=== PATIENT | male | born 1975 | race Two or more races ===

== ENCOUNTER 2017-02-18 22:51 | Emergency (ER) | payer MEDICAID, OTHER ==
[~2017-02-18] VITALS: Ht 188 cm; Wt 113.6 kg
[~2017-02-18 22:51] MED LIST: ARIP5TAB4 PO; DIVA500T4 PO; HALO5TAB PO; HYDR25CA PO; LORA2TAB96 PO; LORA2VIA27 IM; RISP0.5T74 PO
[2017-02-19] MEDS ORDERED: ibuprofen tablet 400 MG TABLET PO ONE (01:15)
[2017-02-19 01:30] VITALS: BP 128/78
== END 2017-02-19 01:32 | disposition home or self-care (01) ==
LOC: ER 22:52
DX: M79.671 Pain in right foot (principal); M79.672 Pain in left foot; Z88.1 Allergy status to other antibiotic agents; Z88.8 Allergy status to other drugs, medicaments and biological substances; Z79.899 Other long term (current) drug therapy; W22.8XXA Striking against or struck by other objects, initial encounter; Y93.01 Activity, walking, marching and hiking; Y92.89 Other specified places as the place of occurrence of the external cause; Y99.9 Unspecified external cause status
CPT/HCPCS: 99282

== ENCOUNTER 2017-02-21 18:05 | Emergency (ER) | payer MEDICAID ==
[~2017-02-21] VITALS: Ht 188 cm; Wt 86.0 kg
[2017-02-21 20:42] VITALS: BP 130/87
== END 2017-02-21 20:46 | disposition home or self-care (01) ==
LOC: ER 18:07
DX: T69.022A Immersion foot, left foot, initial encounter (principal); T69.021A Immersion foot, right foot, initial encounter; F17.200 Nicotine dependence, unspecified, uncomplicated; Z59.0 Homelessness; Z88.2 Allergy status to sulfonamides; Z88.8 Allergy status to other drugs, medicaments and biological substances
CPT/HCPCS: 99281

== ENCOUNTER 2017-02-23 12:04 | Emergency (ER) | payer MEDICAID ==
[~2017-02-23] VITALS: Ht 188 cm; Wt 91.0 kg
[2017-02-23 12:50] VITALS: BP 126/85
[2017-02-28] MEDS ORDERED: IBUP-1984 PO (14:22)
== END 2017-02-23 12:51 | disposition home or self-care (01) ==
LOC: ER 12:05
DX: M54.5 Low back pain (principal); M79.671 Pain in right foot; M79.672 Pain in left foot; R20.2 Paresthesia of skin; Z59.0 Homelessness; Z88.2 Allergy status to sulfonamides; Z88.8 Allergy status to other drugs, medicaments and biological substances
CPT/HCPCS: 99281

== ENCOUNTER 2017-02-23 23:35 | Emergency (ER) | payer MEDICAID, OTHER ==
[~2017-02-23] VITALS: Ht 188 cm; Wt 90.9 kg
[2017-02-24 01:12] VITALS: BP 140/108
[2017-02-28] MEDS ORDERED: IBUP-1984 PO (14:22)
== END 2017-02-24 01:15 | disposition home or self-care (01) ==
LOC: ER 23:36
DX: T69.022A Immersion foot, left foot, initial encounter (principal); T69.021A Immersion foot, right foot, initial encounter; M79.671 Pain in right foot; R46.0 Very low level of personal hygiene; M79.672 Pain in left foot; Z59.0 Homelessness; Z91.041 Radiographic dye allergy status; Z88.1 Allergy status to other antibiotic agents; Z88.8 Allergy status to other drugs, medicaments and biological substances; Z79.899 Other long term (current) drug therapy; Y92.9 Unspecified place or not applicable
CPT/HCPCS: 99281

== ENCOUNTER 2017-02-26 07:59 | Emergency (ER) | payer MEDICAID, OTHER ==
[~2017-02-26] VITALS: Ht 188 cm; Wt 91.0 kg
[2017-02-26 08:02] VITALS: BP 155/118
[2017-02-26] MEDS ORDERED: CEPH500C5 PO (08:26)
[2017-02-26] MEDS ORDERED: MICO45PO TOP (18:29)
[2017-02-27] MEDS ORDERED: IBUP-1984 PO (21:31)
[2017-02-28] MEDS ORDERED: IBUP-1984 PO (14:22)
== END 2017-02-26 09:17 | disposition home or self-care (01) ==
LOC: ER 07:59
DX: K13.0 Diseases of lips (principal); Z59.0 Homelessness; Z79.899 Other long term (current) drug therapy; Z88.2 Allergy status to sulfonamides; Z88.8 Allergy status to other drugs, medicaments and biological substances
CPT/HCPCS: 99283

== ENCOUNTER 2017-02-26 17:36 | Emergency (ER) | payer MEDICAID, OTHER ==
[~2017-02-26] VITALS: Ht 188 cm; Wt 94.0 kg
[~2017-02-26 17:36] MED LIST changes: +CEPH500C5 PO
[2017-02-26] MEDS ORDERED: MICO45PO TOP (18:29)
[2017-02-26 18:42] VITALS: BP 129/84
[2017-02-27] MEDS ORDERED: IBUP-1984 PO (21:31)
[2017-02-28] MEDS ORDERED: IBUP-1984 PO (14:22)
== END 2017-02-26 19:03 | disposition home or self-care (01) ==
LOC: ER 17:37
DX: S90.822A Blister (nonthermal), left foot, initial encounter (principal); S90.821A Blister (nonthermal), right foot, initial encounter; B35.3 Tinea pedis; Z59.0 Homelessness; Z88.2 Allergy status to sulfonamides; Z88.8 Allergy status to other drugs, medicaments and biological substances; X58.XXXA Exposure to other specified factors, initial encounter; Y93.89 Activity, other specified; Y92.89 Other specified places as the place of occurrence of the external cause; Y99.8 Other external cause status
CPT/HCPCS: 99281; 99284

== ENCOUNTER 2017-02-27 21:03 | Emergency (ER) | payer MEDICAID ==
[~2017-02-27] VITALS: Ht 188 cm; Wt 95.5 kg
[~2017-02-27 21:03] MED LIST changes: +MICO45PO TOP
[2017-02-27] MEDS ORDERED: IBUP-1984 PO (21:31)
[2017-02-27 21:44] VITALS: BP 120/80
[2017-02-28] MEDS ORDERED: IBUP-1984 PO (14:22)
== END 2017-02-27 21:46 | disposition home or self-care (01) ==
LOC: ER 21:04
DX: L75.0 Bromhidrosis (principal); M54.2 Cervicalgia; Z59.0 Homelessness; Z88.2 Allergy status to sulfonamides; Z88.8 Allergy status to other drugs, medicaments and biological substances; Z79.899 Other long term (current) drug therapy
CPT/HCPCS: 99282

== ENCOUNTER 2018-03-31 14:06 | Emergency (ER) | payer MEDICAID ==
[~2018-03-31] VITALS: Ht 188 cm; Wt 104.5 kg
[~2018-03-31 14:06] MED LIST changes: -CEPH500C5 PO; -LORA2VIA27 IM; +LORA2VIA30 IM
[2018-03-31 14:22] VITALS: BP 162/88
[2018-03-31] MEDS ORDERED: proCHLORperazine 10mg tablet PO ONE (14:55)
[2018-03-31] MEDS ORDERED: naproxen 500mg tablet PO ONE (14:55)
[2018-03-31] MEDS ORDERED: HYDROcodone/acetaminophen 5mg/325mg tablet PO ONE (14:55)
[2018-03-31] MEDS ORDERED: SUMAtriptan succ. 6 MG/0.5ml vial SQ ONE (14:55)
== END 2018-03-31 15:11 | disposition home or self-care (01) ==
LOC: ER 14:07
DX: E86.0 Dehydration (principal); I10 Essential (primary) hypertension; Z59.0 Homelessness; Z56.0 Unemployment, unspecified; Z88.1 Allergy status to other antibiotic agents; Z91.041 Radiographic dye allergy status; Z79.899 Other long term (current) drug therapy
CPT/HCPCS: 96372; 99284; J3030; Q0164

== ENCOUNTER 2018-04-02 04:24 | Emergency (ER) | payer MEDICAID ==
[~2018-04-02] VITALS: Ht 188 cm; Wt 85.0 kg
[2018-04-02 06:02] VITALS: BP 122/79
[2018-04-02] MEDS ORDERED: acetaminophen 325mg tablet PO ONE (06:15)
== END 2018-04-02 06:59 | disposition home or self-care (01) ==
LOC: ER 04:25
DX: H92.02 Otalgia, left ear (principal); Z59.0 Homelessness; Z56.0 Unemployment, unspecified; Z88.2 Allergy status to sulfonamides; Z91.041 Radiographic dye allergy status
CPT/HCPCS: 99282

== ENCOUNTER 2018-04-02 13:13 | Emergency (ER) | payer MEDICAID ==
[~2018-04-02] VITALS: Ht 188 cm; Wt 96.8 kg
[2018-04-02 13:44] LABS: BASOPHILS % (AUTO) 0.6 % (0-1); EOSINOPHILS # (AUTO) 0.1 X10'3 (0-0.9); EOSINOPHILS % (AUTO) 1.5 % (0-6); HEMATOCRIT 39.6 % (42.0-52.0); HEMOGLOBIN 13.6 g/dl (14.0-17.9); LYMPHOCYTES # (AUTO) 1.5 X10'3 (1.1-4.8); MEAN CORPUSCULAR HEMOGLOBIN 31.8 PG (27.0-31.0); MEAN CORPUSCULAR HGB CONC 34.3 g/dL (33.0-36.5); MEAN CORPUSCULAR VOLUME 92.7 FL (78-98); MEAN PLATELET VOLUME 7.9 FL (7.4-10.4); MONOCYTES # (AUTO) 0.7 X10'3 (0-0.9); MONOCYTES % (AUTO) 9.6 % (2-12); NEUTROPHILS # (AUTO) 5.3 X10'3 (1.8-7.7); NEUTROPHILS % (AUTO) 68.3 % (42-75); PLATELET COUNT 290 X10'3 (140-440); RED BLOOD COUNT 4.27 X10'6 (4.70-6.10); RED CELL DISTRIBUTION WIDTH 14.2 % (11.5-14.5); WHITE BLOOD COUNT 7.7 X10'3 (4.5-11.0)
[2018-04-02 14:00] LABS: ALANINE AMINOTRANSFERASE 26 U/L (12-78); ALBUMIN 3.7 G/DL (3.4-5.0); ALBUMIN/GLOBULIN RATIO 0.9 (1.1-1.5); ALKALINE PHOSPHATASE 120 IU/L (46-116); ANION GAP 14 (8-16); ASPARTATE AMINO TRANSFERASE 31 U/L (10-37); BILIRUBIN,TOTAL 0.6 MG/DL (0.1-1.0); BLOOD UREA NITROGEN 12 MG/DL (7-18); BUN/CREATININE RATIO 13.2 (5.4-32.0); CHLORIDE 98 MMOL/L (99-107); CREATININE 0.91 MG/DL (0.60-1.10); GLUCOSE 76 MG/DL (70-104); PARTIAL THROMBOPLASTIN TIME 28 SECONDS (22-32); POTASSIUM 3.3 MMOL/L (3.5-5.1); PROTHROMBIN TIME 10.2 SECONDS (9.0-12.0); SODIUM 137 MMOL/L (135-145); TOTAL CARBON DIOXIDE 24.9 MMOL/L (24-32); TOTAL PROTEIN 7.8 G/DL (6.4-8.2); eGFR > 90 ML/MIN
[2018-04-02] MEDS ORDERED: LORazepam 1 MG tablet PO ONE (14:10)
[2018-04-02 14:19] VITALS: BP 145/94
== END 2018-04-02 14:21 | disposition home or self-care (01) ==
LOC: ER 13:14
DX: R07.9 Chest pain, unspecified (principal); Z88.2 Allergy status to sulfonamides; Z88.8 Allergy status to other drugs, medicaments and biological substances; Z79.899 Other long term (current) drug therapy; Z56.0 Unemployment, unspecified; Z59.0 Homelessness
CPT/HCPCS: 36415; 71045; 80053; 84484; 85025; 85610; 85730; 93005; 99284

== ENCOUNTER 2018-04-06 10:22 | Emergency (ER) | payer MEDICAID ==
[~2018-04-06] VITALS: Ht 188 cm; Wt 100.0 kg
[2018-04-06 11:09] VITALS: BP 160/82
== END 2018-04-06 15:37 | disposition left against medical advice (07) ==
LOC: ER 10:23
DX: M25.529 Pain in unspecified elbow (principal); Z53.21 Procedure and treatment not carried out due to patient leaving prior to being seen by health care provider

== ENCOUNTER 2018-04-08 15:06 | Emergency (ER) | payer MEDICAID ==
[~2018-04-08] VITALS: Ht 188 cm; Wt 102.3 kg
[2018-04-08] MEDS ORDERED: mupirocin 2% ointment 22GM TP STA (15:43)
[2018-04-08 15:48] VITALS: BP 147/79
--- NOTE | 2018-04-08 15:54 | NUR ---
pt has blood pressure cuffs in his left back pocket from all his visits. He says they are part of him. he asked to keep his cuffs.
== END 2018-04-08 16:04 | disposition home or self-care (01) ==
LOC: ER 15:07
DX: S80.211A Abrasion, right knee, initial encounter (principal); R21 Rash and other nonspecific skin eruption; M79.604 Pain in right leg; F20.9 Schizophrenia, unspecified; F31.9 Bipolar disorder, unspecified; Z59.0 Homelessness; Z56.0 Unemployment, unspecified; Z91.041 Radiographic dye allergy status; Z88.1 Allergy status to other antibiotic agents; Z88.8 Allergy status to other drugs, medicaments and biological substances; X58.XXXA Exposure to other specified factors, initial encounter; Y93.89 Activity, other specified; Y92.89 Other specified places as the place of occurrence of the external cause; Y99.9 Unspecified external cause status
CPT/HCPCS: 99282; 99284

== ENCOUNTER 2018-04-10 19:23 | Emergency (ER) | payer MEDICAID ==
[~2018-04-10] VITALS: Ht 188 cm; Wt 102.2 kg
[2018-04-10 19:38] VITALS: BP 117/62
[2018-04-10] MEDS ORDERED: CYCL-1 PO (21:54)
[2018-04-10] MEDS ORDERED: IBUP-1984 PO (21:54)
[2018-04-10] MEDS ORDERED: ibuprofen tablet 400 MG TABLET PO ONE (21:55)
== END 2018-04-10 22:11 | disposition home or self-care (01) ==
LOC: ER 19:23
DX: M54.5 Low back pain (principal); Z88.2 Allergy status to sulfonamides; Z88.8 Allergy status to other drugs, medicaments and biological substances; Z79.899 Other long term (current) drug therapy; Z59.0 Homelessness; Z56.0 Unemployment, unspecified
CPT/HCPCS: 99283

== ENCOUNTER 2018-04-12 14:51 | Emergency (ER) | payer MEDICAID ==
[~2018-04-12] VITALS: Ht 182.9 cm; Wt 104.5 kg
[~2018-04-12 14:51] MED LIST changes: +CYCL-1 PO; +IBUP-1984 PO
[2018-04-12 15:04] VITALS: BP 157/96
== END 2018-04-12 15:57 | disposition home or self-care (01) ==
LOC: ER 14:51
DX: S46.911A Strain of unspecified muscle, fascia and tendon at shoulder and upper arm level, right arm, initial encounter (principal); F15.90 Other stimulant use, unspecified, uncomplicated; Z88.2 Allergy status to sulfonamides; Z88.8 Allergy status to other drugs, medicaments and biological substances; Z79.899 Other long term (current) drug therapy; Z59.0 Homelessness; Z56.0 Unemployment, unspecified; X58.XXXA Exposure to other specified factors, initial encounter; Y93.71 Activity, boxing; Y92.89 Other specified places as the place of occurrence of the external cause; Y99.8 Other external cause status
CPT/HCPCS: 99284

== ENCOUNTER 2018-04-14 01:33 | Emergency (ER) | payer MEDICAID ==
[~2018-04-14] VITALS: Ht 188 cm; Wt 84.5 kg
[2018-04-14 01:44] VITALS: BP 136/82
== END 2018-04-14 02:19 | disposition left against medical advice (07) ==
LOC: ER 01:34
DX: M54.2 Cervicalgia (principal); Z53.21 Procedure and treatment not carried out due to patient leaving prior to being seen by health care provider

== ENCOUNTER 2018-04-18 08:21 | Emergency (ER) | payer MEDICAID ==
[~2018-04-18] VITALS: Ht 188 cm; Wt 97.7 kg
[~2018-04-18 08:21] MED LIST changes: -IBUP-1984 PO
[2018-04-18 08:30] VITALS: BP 135/90
[2018-04-18] MEDS ORDERED: IBUP-1984 PO (08:43)
--- NOTE | 2018-04-18 09:35 | NUR ---
LEFT WRIST SPLINT APPLIED. DC INSTRUCTIONS GIVEN WITH PRESCRIPTION AND VERBALIZED UNDERSTANDING. DEPARTED AMB IN GOOD CONDITION.
== END 2018-04-18 09:38 | disposition home or self-care (01) ==
LOC: ER 08:22
DX: G89.29 Other chronic pain (principal); M25.562 Pain in left knee; G56.32 Lesion of radial nerve, left upper limb; M21.332 Wrist drop, left wrist; F17.210 Nicotine dependence, cigarettes, uncomplicated; Z56.0 Unemployment, unspecified; Z59.0 Homelessness; Z91.041 Radiographic dye allergy status; Z88.2 Allergy status to sulfonamides
CPT/HCPCS: 29125; 99283

== ENCOUNTER 2018-04-22 19:40 | Emergency (ER) | payer MEDICAID ==
[~2018-04-22] VITALS: Ht 188 cm; Wt 100.0 kg
[~2018-04-22 19:40] MED LIST changes: +IBUP-1984 PO
[2018-04-22 19:47] VITALS: BP 145/84
== END 2018-04-22 21:12 | disposition home or self-care (01) ==
LOC: ER 19:41
DX: M79.641 Pain in right hand (principal); M79.642 Pain in left hand; Z88.2 Allergy status to sulfonamides; Z88.8 Allergy status to other drugs, medicaments and biological substances; Z79.899 Other long term (current) drug therapy; Z59.0 Homelessness; Z56.0 Unemployment, unspecified
CPT/HCPCS: 99281

== ENCOUNTER 2018-05-03 08:05 | Emergency (ER) | payer MEDICAID ==
[~2018-05-03] VITALS: Ht 182.9 cm; Wt 91.1 kg
[2018-05-03 08:08] VITALS: BP 149/90
[2018-05-03] MEDS ORDERED: ACET-2119 PO (08:34)
== END 2018-05-03 08:52 | disposition home or self-care (01) ==
LOC: ER 08:05
DX: M25.562 Pain in left knee (principal); M54.9 Dorsalgia, unspecified; M79.645 Pain in left finger(s); M79.644 Pain in right finger(s); Z88.2 Allergy status to sulfonamides; Z88.8 Allergy status to other drugs, medicaments and biological substances; Z79.899 Other long term (current) drug therapy; Z59.0 Homelessness; Z56.0 Unemployment, unspecified; X50.9XXA Other and unspecified overexertion or strenuous movements or postures, initial encounter; Y93.89 Activity, other specified; Y92.89 Other specified places as the place of occurrence of the external cause; Y99.8 Other external cause status
CPT/HCPCS: 99282

== ENCOUNTER 2018-05-04 23:02 | Emergency (ER) | payer MEDICAID ==
[~2018-05-04] VITALS: Ht 188 cm; Wt 90.0 kg
[~2018-05-04 23:02] MED LIST changes: +ACET-2119 PO
[2018-05-04 23:08] VITALS: BP 143/83
--- NOTE | 2018-05-04 23:58 | NUR ---
Here for a physical from . He currently had no c/o anything.
== END 2018-05-04 23:59 | disposition home or self-care (01) ==
LOC: ER 23:03
DX: Z00.00 Encounter for general adult medical examination without abnormal findings (principal); F20.9 Schizophrenia, unspecified; Z56.0 Unemployment, unspecified; Z59.0 Homelessness; Z88.2 Allergy status to sulfonamides; Z91.041 Radiographic dye allergy status; Z79.899 Other long term (current) drug therapy
CPT/HCPCS: 99281

== ENCOUNTER 2018-05-10 09:52 | Emergency (ER) | payer MEDICAID ==
[~2018-05-10] VITALS: Ht 188 cm; Wt 90.0 kg
[2018-05-10] MEDS ORDERED: LORazepam 2 mg/ml vial IM ONE ×2 (10:15→20:00)
[2018-05-10] MEDS ORDERED: diphenhydrAMINE 50 mg/ml inj IM ONE ×2 (10:15→20:00)
[2018-05-10] MEDS ORDERED: haloperidol lactate 5mg/ml inj IM ONE ×3 (10:15→20:00)
--- NOTE | 2018-05-10 10:31 | NUR ---
PT MOVED FROM SLAUGHTER 16 TO BED 9. MARJORIE GARIBAY TO INTAKE AND MEDICATE
[2018-05-10 11:12] LABS: BASOPHILS # (AUTO) 0.1 X10'3 (0-0.2); BASOPHILS % (AUTO) 1.3 % (0-1); EOSINOPHILS # (AUTO) 0.1 X10'3 (0-0.9); EOSINOPHILS % (AUTO) 1.6 % (0-6); HEMATOCRIT 39.6 % (42.0-52.0); HEMOGLOBIN 13.3 g/dl (14.0-17.9); MEAN CORPUSCULAR HEMOGLOBIN 31.4 PG (27.0-31.0); MEAN CORPUSCULAR HGB CONC 33.6 g/dL (33.0-36.5); MEAN CORPUSCULAR VOLUME 93.6 FL (78-98); MEAN PLATELET VOLUME 8.1 FL (7.4-10.4); MONOCYTES # (AUTO) 0.5 X10'3 (0-0.9); MONOCYTES % (AUTO) 8.3 % (2-12); NEUTROPHILS # (AUTO) 3.5 X10'3 (1.8-7.7); NEUTROPHILS % (AUTO) 56.8 % (42-75); PLATELET COUNT 303 X10'3 (140-440); RED BLOOD COUNT 4.23 X10'6 (4.70-6.10); RED CELL DISTRIBUTION WIDTH 14.7 % (11.5-14.5); WHITE BLOOD COUNT 6.2 X10'3 (4.5-11.0)
[2018-05-10 11:21] LABS: ALANINE AMINOTRANSFERASE 29 U/L (12-78); ALBUMIN 3.5 G/DL (3.4-5.0); ALBUMIN/GLOBULIN RATIO 1.1 (1.1-1.5); ALKALINE PHOSPHATASE 99 IU/L (46-116); ANION GAP 10 (8-16); ASPARTATE AMINO TRANSFERASE 27 U/L (10-37); BILIRUBIN,TOTAL 0.4 MG/DL (0.1-1.0); BLOOD UREA NITROGEN 11 MG/DL (7-18); BUN/CREATININE RATIO 13.6 (5.4-32.0); CHLORIDE 105 MMOL/L (99-107); CREATININE 0.81 MG/DL (0.60-1.10); ETHANOL < 0.010 GM/DL (0.0-0.010); GLUCOSE 86 MG/DL (70-104); POTASSIUM 3.5 MMOL/L (3.5-5.1); SODIUM 140 MMOL/L (135-145); TOTAL CARBON DIOXIDE 24.9 MMOL/L (24-32); TOTAL PROTEIN 6.8 G/DL (6.4-8.2); eGFR > 90 ML/MIN
--- NOTE | 2018-05-10 11:26 | NUR ---
SAT PT UP TO SIDE OF BED WITH LEGS HANGING OVER SIDE OF GURNEY, 3 SECURITY AT BEDSIDE, CA PA TO BEDSIDE TO EVALUATE PT LEFT KNEE PAIN AND SWELLING, PT OFFERED IBUPROFEN TID WITH MEALS AND MUMBLED SOME KIND OF NONSENSE REFUSAL OF IBUPROFEN, PT ASKED TO PROVIDE URINE SAMPLE 3 TIMES SINCE ARRIVAL PT LAST RESPONSE WAS THAT HE KNOW WHEN HE HAS TO GO AND HE DOES NOT AT THIS TIME, PT WAS GIVEN LARGE GLASS OF ICEWATER AND DRANK SOME, PT IS NOW BECOMING SLEEPY CLOSING EYE WHIL SITTING UP, PT LAY BACK DOWN AFTER ASSESSMENT AND QUICKLY BACK TO SLEEP, RESPIRATIONS SPONTANEOUS, EVEN AND UNLABORED, NO S/S OF DISTRESS, DISCOMFORT OR AGITATION AFTER BEING MEDICATED PER ORDERS. CA INFORMED THAT UNABLE TO OBTAIN URINE AT THIS TIME, PROVIDER IS FINE WITH NOT GETTING NOW AND RN WILL ATTEMPT TO OBTAIN URINE AGAIN IN AN HOUR.
--- NOTE | 2018-05-10 12:24 | NUR ---
PT STOOD UP IN ROOM SPILLED HIS CUP OF WATER, URINATED ON GREEN PANTS SCRUBS AND FLOOR, SECURITY CALLED TO BEDSIDE AND EVS CLEANED UP SPILL ON FLOOR, SECURITY STANDING BY PT STOOD TO URINATE IN URINAL, SENT URINE DOWN TO LAB PER ORDERS, PT CHANGED INTO NEW GREEN SCRUB BOTTOM, GIVEN JELLO AND YOGURT, INFORMED LUNCH TRAY SHOULD BE HERE SHORTLY.
[2018-05-10 12:33] LABS: CLARITY,URINE CLEAR (Clear); COLOR,URINE YELLOW (Yellow); GLUCOSE, URINE NEGATIVE (Neg); KETONES,URINE 15 mg/dl (Neg); LEUKOCYTE ESTERASE ,URINE NEGATIVE (Neg); NITRITES, URINE NEGATIVE (Neg); OCCULT BLOOD,URINE NEGATIVE (Neg); PROTEIN,URINE NEGATIVE (Neg); UROBILINOGEN,URINE 0.2 E.U/dL (0.2-1.0)
[2018-05-10 12:35] LABS: UA COLLECTION TYPE VOIDED
[2018-05-10 12:43] LABS: URINE AMPHETAMINE SCREEN NEGATIVE (Neg); URINE BARBITUATE SCREEN NEGATIVE (Neg); URINE BENZODIAZEPINES SCREEN NEGATIVE (Neg); URINE CANNABINOID SCREEN NEGATIVE (Neg); URINE COCAINE SCREEN NEGATIVE (Neg); URINE METHADONE SCREEN NEGATIVE (Neg); URINE OPIATE SCREEN NEGATIVE (Neg); URINE PHENCYCLIDINE SCREEN NEGATIVE (Neg)
--- NOTE | 2018-05-10 13:25 | NUR ---
PT SLEEPING, RESPIRATIONS SPONTENOUS, EVEN AND UNLABORED, NO S/S OF DISTRESS, DISCOMFORT OR AGITATION AT THIS TIME.
--- NOTE | 2018-05-10 14:32 | NUR ---
PT IS SLEEPING ON LEFT SIDE, RESPIRATIONS SPONTANEOUS, EVEN AND UNLABORED, NO S/S OF DISTRESS DISCOMFORT OR AGITATION.
--- NOTE | 2018-05-10 17:29 | NUR ---
relieving RN for break, report to Priya GARIBAY,
--- NOTE | 2018-05-10 18:07 | NUR ---
Patient ambulatory, steady gait to room 27.
--- NOTE | 2018-05-10 19:58 | NUR ---
PT IS AWAKE AND UP ON HIS OWN TO THE BATHROOM. PT WAS MOVED TO BED 21, DEMANDING TO HAVE A TRAY FOR DINNER, DEMANDING TO HAVE HIS FFET CLEANED. PT IS BEING LOUD AND VERBAL ABUSIVE TO STAFF, JANNA RANDOLPH NOTIFED. SECURITY IS ON STANDBY.
--- NOTE | 2018-05-10 20:15 | NUR ---
Patient continues to be verbally aggressive towards staff and security. Threatening physical violence and nonsensical confabulations. Making statements as to "I'll have you arrested, I have diplomatic immunity, I'm not even from your planet". Delusions of grandeur, believing he owns the hospital and that staff has no right to be there, that he will "arrest you myself if you touch me again in my hospital". Abrassive and verbally agressive towards security, attempting to belittle them, calling them "just a fat mother fucker that don't know how to exercise...you fucking almost obese, you fat mother-fucker, try to touch me, I'll knock you through that fucking wall".
--- NOTE | 2018-05-10 21:14 | NUR ---
PT IS LAYING ON HIS RIGHT SIDE, RESPIRATIONS EVEN AND UNLABORED. NO DISTRESS NOTED AT THIS TIME.
--- NOTE | 2018-05-10 23:03 | NUR ---
PT IS SLEEPING LAYING SUPINE, RESPIRATIONS EVEN AND UNLABORED, NO SISTRESSS NOTED AT THIS TIME.
--- NOTE | 2018-05-11 00:12 | NUR ---
Report rec'd, care assumed, assessments reviewed and agreed with. Patient is currently resting in bed with eyes closed, appearing to sleep. Will continue to monitor.
--- NOTE | 2018-05-11 01:24 | NUR ---
In bed, appearing to sleep. Restless at times, but back to sleep without issues or concerns noted atthis time. Will monitor.
--- NOTE | 2018-05-11 02:57 | NUR ---
Appearing to sleep, no new concerns or issues noted. Will continue to monitor.
--- NOTE | 2018-05-11 03:52 | NUR ---
Resting in bed, appearing to sleep, though restless at times. No new concerns or persisting behavorial issues noted at this time. Will continue to monitor.
--- NOTE | 2018-05-11 05:02 | NUR ---
Awake, up to BRP, appearing far more calm at this time. Will continue to monitor.
--- NOTE | 2018-05-11 05:07 | NUR ---
Requesting breakfast, stating "I missed dinner, slept right through it", sandwich given to patient.
--- NOTE | 2018-05-11 05:45 | NUR ---
Vital signs taken by Tech. Cooperative with cares this morning, will monitor.
--- NOTE | 2018-05-11 06:30 | NUR ---
Pt report recieved and assumed care of pt. Pt up and walking around bed randomly talking and rapping. Asked pt to lower his voice several times, will be compliant for a minute then talks loudly again.
--- NOTE | 2018-05-11 07:44 | NUR ---
pt awake and up and down from bed to bathroom and occationally sits on the floor. Pt washed himself in the bathroom. Came back to bed and soaked feet in a basin by his bed and continued self-care. Pt up and walking around his bed and appears to be restless. Pt rapping and singing, asked to keep noise level down. Can easily be redirected when asked to stay by his bed. occationally becomes angry when redirected to his bed. Keeps asking for breakfast. Talks about random things and not making sense.
[2018-05-11] MEDS ORDERED: diphenhydrAMINE 50 mg/ml inj IM ONE (08:05)
[2018-05-11] MEDS ORDERED: LORazepam 2 mg/ml vial IM ONE (08:05)
[2018-05-11] MEDS ORDERED: haloperidol lactate 5mg/ml inj IM ONE (08:05)
--- NOTE | 2018-05-11 08:51 | NUR ---
Pt given Ativan, Haldol, and Benadryl IM at 0830 with extra nursing personnel and security at bedside. Pt was compliant and took medication well. Pt remains to stand up and walk around bed talking loudly. Pt asked to stay in bed and lower voice multiple times, security remaining at bedside.
--- NOTE | 2018-05-11 09:00 | NUR ---
pt asleep in bed s/p Ativan, Haldol, Benadryl administration.
--- NOTE | 2018-05-11 11:12 | NUR ---
pt woke up from sleeping and walking to the bathroom, groggy. Cussing at staff, getting verbally hostile. Security at bedside. walking around bed straightening bed sheets.
[2018-05-11] MEDS ORDERED: LORazepam 1 MG tablet PO ONE (11:25)
--- NOTE | 2018-05-11 11:33 | NUR ---
Dr. Ford aware, pt up and walking around and being verbally abusive and agitated s/p Ativan, Haldol, and Benadryl administration less than 3 hours ago. Ativan 2mg PO ordered and given per Dr. Ford. Dr. Anthony with Psych to see pt for eval. Pt has now returned to bed. Security at bedside.
--- NOTE | 2018-05-11 13:12 | NUR ---
Pt has been evaluated by Dr. Lizama. Pt will occationally get up to use the restroom. It currently asleep.
--- NOTE | 2018-05-11 14:00 | NUR ---
pt up to bathroom. in no distress. was sleeping well.
--- NOTE | 2018-05-11 14:12 | NUR ---
eating lunch now.
--- NOTE | 2018-05-11 15:53 | NUR ---
resting comfortably in bed, calm. occationally gets up to use restroom and then goes back to bed.
--- NOTE | 2018-05-11 18:15 | NUR ---
pt ambulating around the unit, calm and cooperative.
--- NOTE | 2018-05-11 18:52 | NUR ---
pt sitting up eating dinner in between coming to nurses station requesting various items, dancing in the hallways, and cleaning various surfaces.
[2018-05-11] MEDS ORDERED: HYDR-3717 PO (19:15)
[2018-05-11] MEDS ORDERED: DIVA-76 PO (19:15)
[2018-05-11] MEDS ORDERED: HYDR-3686 PO (19:15)
--- NOTE | 2018-05-11 19:36 | NUR ---
SOC called to initiate telepsych consult
[2018-05-11] MEDS: LORazepam 1 MG tablet PO PRN (20:00)
--- NOTE | 2018-05-11 20:05 | NUR ---
waiting for completion of telepsych before giving night meds.
[2018-05-11] MEDS ORDERED: haloperidol 5mg tablet PO ONE (20:25)
[2018-05-11] MEDS ORDERED: diphenhydrAMINE 25mg capsule PO ONE (20:25)
[2018-05-11] MEDS: risperiDONE 2mg tablet PO SCH (20:33)
[2018-05-11] MEDS: divalproex sodium 250mg tablet PO SCH (20:33)
--- NOTE | 2018-05-11 20:37 | NUR ---
pt had become agitated and aggressive and would not stay near his room or reason with staff. he became defiant and more agitated when limits were set. security was called and he still would not cooperate. Dr Lopez notified and he ordered medications for agitation. pt cooperated with taking PO meds
--- NOTE | 2018-05-11 21:07 | NUR ---
pt is currently resting calmly in bed on left side, respirations WNL
--- NOTE | 2018-05-11 21:13 | NUR ---
spoke with SOC MD who called to get a report. Will attempt telepsych consult tomorrow, pt is now sleeping and calm after rec/ meds
--- NOTE | 2018-05-11 22:25 | NUR ---
pt up to void, then returned to bed and fell back asleep.
[2018-05-11] MEDS: hydrOXYzine 25 MG tablet PO PRN (23:46)
[2018-05-11] MEDS: hydrOXYzine 10 MG tablet PO PRN (23:52)
[2018-05-11] MEDS ORDERED: OLANZapine **IM** 10 mg inj. IM ONE (23:55)
--- NOTE | 2018-05-12 00:18 | NUR ---
PT'S BEHAVIOR ESCALATING, MEDICATED AGAIN FOR AGGITATION WITH ZYPREXA. ESCORTED BACK TO BED AND TOLD TO LIE DOWN AND KEEP QUIET HE IS DISRUPTING ENTIRE UNIT. SECURITY AT BEDSIDE. PT PULLING LINEN OFF BED AND CURSING.
[2018-05-12] MEDS ORDERED: LORazepam 2 mg/ml vial IM ONE ×3 (00:35→16:25)
--- NOTE | 2018-05-12 00:55 | NUR ---
PT CONTINUES TO BE RESTLESS, AND VERBALLY ABUSIVE TO STAFF. SECURITY CALLED 3 TIMES IN LAST HOUR TO ENCOURAGE PATIENT TO RETURN TO BED. ORDER FOR RESTRAINTS OBTAINED FROM ER PHYSICIAN IF NEEDED. ER PHYSICIAN OBSERVED PT AND ORDERED AND ADDITIONAL 4 MG ATIVAN, IM. PT OUT OF BED TO USE THE RESTROOM, THEN RETURNED TO BED WITH ECOURAGEMENT OF SECURITY.
--- NOTE | 2018-05-12 01:46 | NUR ---
Pt incontient of urine. Fresh gown placed on pt. Dry flows placed on beds. Pt placed in a brief.
--- NOTE | 2018-05-12 02:25 | NUR ---
PT SAT ON SIDE OF BED AND URINATED ON FLOOR. PT SLEEPY AND SLURRING HIS WORDS. PT AND FLOOR CLEANED, PATIENT AND FLOOR WAS CLEANED. PT RETURNED TO BED AND FELL ASLEEP. RESPIRATIONS EVEN AND UNLABORED.
--- NOTE | 2018-05-12 03:15 | NUR ---
PT ATTEMPTED TO GET OUT OF BED TO GO TO THE BATHROOM. PT WAS GIVEN A URINAL AND TOLD THAT HE WAS UNSAFE TO WALK AT THIS TIME. PT BECAME VERBALLY ABUSIVE, AND WAS REORIENTED TO APPROPRIATE BEHAVIOR. PT REFUSED TO USE THE URINAL, BUT EVENTUALLY FELL BACK ASLEEP WHILE SITTING UP. PT WAS ASSISTED BACK TO BED.
[2018-05-12] MEDS ORDERED: haloperidol lactate 5mg/ml inj IM ONE ×3 (04:40→16:25)
--- NOTE | 2018-05-12 04:46 | NUR ---
PT ATTEMPTED TO GET OUT OF BED TO WALK TO THE BATHROOM. PT VERY UNSTABLE R/T MEDICATION. RESISTED ATTEMPTS TO REDIRECT PT TO BED AND URINAL. PT WAS INCONTINENT ON THE FLOOR. SECURITY CALLED TO ASSIST W/ PATIENT COMPLIANCE. NOTIFIED. PT GIVEN 10 MG HALDOL IM IN LEFT DELTOID. PT NOW RESTING ON BACK, SNORING LIGHTLY. RESPIRATION EVEN AND UNLABORED.
--- NOTE | 2018-05-12 06:15 | NUR ---
Report recieved from destinee david
--- NOTE | 2018-05-12 06:30 | NUR ---
report from destinee david
[2018-05-12] MEDS: risperiDONE 2mg tablet PO SCH ×3 (07:57→19:46)
[2018-05-12] MEDS: divalproex sodium 250mg tablet PO SCH ×3 (07:57→19:46)
[2018-05-12] MEDS: LORazepam 1 MG tablet PO PRN (08:27)
--- NOTE | 2018-05-12 09:00 | NUR ---
pt refusing to be cleaned he has urinated over his whole bed and is cussing at me and resistive to care, prn meds adminstered
[2018-05-12] MEDS ORDERED: LORazepam 1 MG tablet PO ONE (09:20)
--- NOTE | 2018-05-12 09:30 | NUR ---
pt now allowed us to clean him up and changed his lenins
--- NOTE | 2018-05-12 11:00 | NUR ---
pt being extremely disrespectful to nursing staff
[2018-05-12] MEDS ORDERED: diphenhydrAMINE 50 mg/ml inj IM ONE ×2 (12:00→16:25)
--- NOTE | 2018-05-12 13:07 | NUR ---
PT SITTING UP IN BED EATING LUNCH.
--- NOTE | 2018-05-12 16:28 | NUR ---
pt verbal abuse has escalated towards nursing staff he is peeing on the ground and all over everything even when nursing staff tries to assist him MD avila has requested we medicate him again and restrain him and place a FC bc him peeing everywhere is a fall risk per
--- NOTE | 2018-05-12 17:00 | NUR ---
FC, Restraints, and medication administered VS cycling q15 min will continue to monitor , pt has been educated on reasoning and how his behavior will determine when we take the restraints off
--- NOTE | 2018-05-12 18:30 | NUR ---
PT AWAKE BUT COOPERATIVE AT THIS TIME, ABLE TO REMOVE RESTRAINTS. DISCUSSED BEHAVIORS THAT WOULD LEAD TO CONTINUATION OF RESTRAINTS. SITTING UPRIGHT IN BED FEEDING SELF DINNER.
--- NOTE | 2018-05-12 19:04 | NUR ---
Elopement band #27 placed pt's left wrist. Explain reason for band.
--- NOTE | 2018-05-12 19:31 | NUR ---
ATTEMPING TO GET OUT OF BED, STATES, "IM TRYING TO GET THE WEDGY OUT OF MY ASS". WHEN ATTEMPTED TO HELP, PT BEGAN AGAIN WITH FOUL LANGUAGE.
[2018-05-12] MEDS: hydrOXYzine 10 MG tablet PO PRN (19:46)
--- NOTE | 2018-05-12 19:47 | NUR ---
PT RESTING QUIETLY AFTER DINNER, ABLE TO SIT UP AND TAKE MEDS.
--- NOTE | 2018-05-12 21:59 | NUR ---
PT SLEEPING AFTER HS MEDS GIVEN.
[2018-05-13] MEDS ORDERED: haloperidol lactate 5mg/ml inj ONE (01:52)
--- NOTE | 2018-05-13 01:54 | NUR ---
PT AWOKE, PULLING ON GIORDANO CATH, ASKED NOT TOO AND STARTED CURSING. YELLING OUT, ANGRY, DISRUPTING THE WHOLE OF UNIT. DR BARRAZA ASKED FOR MED ORDER, HALDOL GIVEN IM WHILE SECURITY AT BEDSIDE.
[2018-05-13] MEDS ORDERED: haloperidol lactate 5mg/ml inj IM ONE (02:00)
[2018-05-13] MEDS ORDERED: LORazepam 2 mg/ml vial IM ONE (05:00)
--- NOTE | 2018-05-13 05:04 | NUR ---
PT BECOMING AGGITATED USING PROFANITY AND YELLING OUT, RECEIVED ORDERS FROM MD FOR ATIVAN IM, PT MEDICATED.
--- NOTE | 2018-05-13 05:24 | NUR ---
NON BEHAVIORAL RESTRAINTS INITIATED PT WILL NOT QUIT PULLING AT GIORDANO CATHETER, LUIS WELL.
--- NOTE | 2018-05-13 06:30 | NUR ---
Asleep at change of shift. In two point soft restraints per night nurse because patient has been attempting to pull out his catheter. Undisturbed at this time.
--- NOTE | 2018-05-13 08:30 | NUR ---
Patient awakened for breakfast and morning medication. Accepted medication without event. Gave verbal agreement to comply with staff requests to stay in bed and urinate in bathroom versus the floor or his table tray. Both hands taken out of soft restraints. Patient complianed of pain from catheter. Urinary catheter removed.
[2018-05-13] MEDS: divalproex sodium 250mg tablet PO SCH ×2 (09:02→20:57)
[2018-05-13] MEDS: LORazepam 1 MG tablet PO PRN (09:03)
[2018-05-13] MEDS: risperiDONE 2mg tablet PO SCH (09:03)
--- NOTE | 2018-05-13 10:30 | NUR ---
Up to the bathroom as needed. Returning to bed with hesitation. Wanting to engage with staff in front of the nurse's station. Redirected to his bed. Patient complied with hesitation. Mumbling to self once he returns to bed. Much of what he says is unintelligible.
[2018-05-13] MEDS ORDERED: ziprasidone IM 20mg inj **IM only IM ONE (12:10)
[2018-05-13] MEDS: LORazepam 2 mg/ml vial IM PRN ×2 (12:21→21:28)
--- NOTE | 2018-05-13 12:23 | NUR ---
Patient's behavior escalating at this time. Standing in front of his bed, pretending to box. Moving towards Bed 23. Continues to pretend to box. Using profanity. Stating "I need to be doing my own thing." "Where's my jacket. I need to be getting myself out of here." Unwilling to go back to bed. Security here. Security Rojas moving patient back to his bed and keeping him safe and occupied. Provider notified. Request for medication orders to decrease agitation. Orders given. Geodon 20 mg/Ativan 2 mg. IM administered as ordered without event with security standing by.
--- NOTE | 2018-05-13 13:30 | NUR ---
Patient remains in soft restraints at this time. Unwilling to contract with staff for safety, appropriate behavior or language. Due to patient's recent administration of medications, and lack of insight and judgement, he remains a fall risk. Lunch meal fed to patient without problem. Patient ate 100% of his meal, afterwards asked for "Heavenly Doughnuts and a cup of coffee."
--- NOTE | 2018-05-13 16:40 | NUR ---
Continues to remain in soft restraints due to impulsive behavior and risk of falling. Patient presents as labile. Pleasant one minute. Verballly abusive and aggressive the next. Does not respond well to verbal limits or redirection.
--- NOTE | 2018-05-13 17:33 | NUR ---
Continues to yell at staff, using profanity, demanding we get him "Heavenly doughnuts, coffee or a half gallon of milk, a can of chew, and High C." Continues to try and bite off his soft restraints with his teeth. Patient remains a fall risk at this time due to a lack of understanding of his limitations, poor insight and judgement.
[2018-05-13] MEDS: ziprasidone 20mg capsule PO SCH (20:57)
--- NOTE | 2018-05-13 21:00 | NUR ---
pt willingly took medications, then ambulated safely to the bathroom. pt asked for a clean pain of scrub pants. When pt wandered to far end of unit, he was reoriented with little difficulty.
--- NOTE | 2018-05-13 21:14 | NUR ---
PT ESCORTED BACK TO BED WHERE HE FOLDED ALL HIS BLANKETS AND PROCEEDED TO LIE DOWN. APPROACHED THE DESK ASKING TO USE PHONE. TOLD THAT IS WAS AFTER HOURS, NOW WANTS POLICE CALLED.
[2018-05-13] MEDS: ziprasidone IM 20mg inj **IM only IM PRN (21:28)
--- NOTE | 2018-05-13 21:29 | NUR ---
PT BECOMING AGGITATED, YELLING AND CURSING, WANTING POLICE CALLED. MEDICATED WITH GEODON AND ATIVAN.
--- NOTE | 2018-05-13 22:30 | NUR ---
Pt incontient of urine, pt given fresh scrub pants and socks. Security standing by to assit with pt as pt unsteady on feet due to meds. Fresh linen placed on bed. Pt given warm blankets to encourage sleep.
--- NOTE | 2018-05-13 22:55 | NUR ---
PT AWAKE AND UP, INCONTINENT OF LARGE AMOUNT OF URINE. WHOLE BED AND CLOTHING CHANGE.
--- NOTE | 2018-05-14 02:32 | NUR ---
AWAKENS TO LARGE AMOUNT OF INCONTINENT URINE, PANTS CHANGED.
--- NOTE | 2018-05-14 05:22 | NUR ---
ESCORTED TO THE BR, SLIGHTLY UNSTEADY ON FEET.
--- NOTE | 2018-05-14 06:30 | NUR ---
Asleep upon change of shift observation. Undisturbed at this time.
--- NOTE | 2018-05-14 08:30 | NUR ---
Awake. Wandering around the unit wrapped in a blanket. Walked to nurse's station and asked for "a shower cap, a phone book, a phone, my drafter cartographic [employer], and a new I.D." Says he wants to call the police and find out "what happened to my car." Continues to present staff with verbal lists of requests he wants fulfilled. Presents as grandiose, attention seeking. Responds poorly to verbal limits.
[2018-05-14] MEDS: ziprasidone 20mg capsule PO SCH ×2 (09:41→19:09)
[2018-05-14] MEDS: divalproex sodium 250mg tablet PO SCH ×2 (09:41→19:09)
--- NOTE | 2018-05-14 10:30 | NUR ---
Continues to test limits. Walking about the unit, wearing his blankets as a shawl. Has difficulty staying in his bed. Poor attention span noted.
--- NOTE | 2018-05-14 12:11 | NUR ---
Call received from Security Staff Alka who reviewed patient's criminal record. Alka discovered that patient is presently on probation. His traffic division commanding officer, Breanna, said patient is in need of mental health services, however she would not hesitate to place patient in custody if he threatened the hospital staff.
[2018-05-14] MEDS: LORazepam 2 mg/ml vial IM PRN ×2 (12:41→19:10)
[2018-05-14] MEDS: ziprasidone IM 20mg inj **IM only IM PRN ×2 (12:42→19:09)
--- NOTE | 2018-05-14 12:46 | NUR ---
Pt. is standing in the griffin yelling profanities. Demanding "to be given the services I deserve." States "I need out of this place. I got places to go.
--- NOTE | 2018-05-14 13:00 | NUR ---
Medicated with Geodon 20mg/Ativan 2mg IM to decrease agitatiion and decrease impulsive, paychotic behavior.
--- NOTE | 2018-05-14 18:09 | NUR ---
Slept for the greater part of the afternoon. Awakened. Cooperative with vitals. Then stated "Can you hurry up this process? 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
[2018-05-14] MEDS: hydrOXYzine 25 MG tablet PO PRN (19:09)
--- NOTE | 2018-05-14 20:00 | NUR ---
pt requesting to take a shower. aides set up pt to wash up in restroom.
--- NOTE | 2018-05-14 21:00 | NUR ---
pt wet himself and requested a new gown.
--- NOTE | 2018-05-14 22:12 | NUR ---
Pt asleep on back. RR 14, even and unlabored. No apparent distress @ this time.
--- NOTE | 2018-05-14 23:02 | NUR ---
pt laying in bed quietly, eyes closed. respirations normal.
--- NOTE | 2018-05-15 00:40 | NUR ---
pt laying in bed quietly, eyes closed. respirations normal.
--- NOTE | 2018-05-15 02:15 | NUR ---
pt laying in bed quietly, eyes closed. respirations normal.
--- NOTE | 2018-05-15 03:00 | NUR ---
pt up out of bed with shower cap on
[2018-05-15] MEDS: LORazepam 2 mg/ml vial IM PRN ×3 (03:42→22:26)
[2018-05-15] MEDS: ziprasidone IM 20mg inj **IM only IM PRN ×2 (03:42→09:43)
--- NOTE | 2018-05-15 04:33 | NUR ---
pt laying in bed quietly, eyes closed. respirations normal.
--- NOTE | 2018-05-15 05:34 | NUR ---
pt laying in bed quietly, eyes closed. respirations normal.
--- NOTE | 2018-05-15 06:43 | NUR ---
Patient sleeping on left side. No distress observed. Continue to monitor.
[2018-05-15] MEDS: divalproex sodium 250mg tablet PO SCH ×2 (08:36→20:04)
[2018-05-15] MEDS: ziprasidone 20mg capsule PO SCH ×2 (08:36→20:08)
--- NOTE | 2018-05-15 09:20 | NUR ---
RN received okay from Dr Demarco to give Geodon and Attrevon, I.M. Patient agitated and getting out of bed demanading to leave and for Staff to call [employer] because someone is robbing him. 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 Security at bedside.
--- NOTE | 2018-05-15 10:20 | NUR ---
Patient still up and cussing, mouthing off. RN encouraging patient to go back to bed. Patient refusing and stating he has a camera in his mouth and he is recording the conversation and the nurse is going to be sued. Continue to monitor.
[2018-05-15] MEDS ORDERED: quetiapine 100mg tablet PO ONE (10:25)
[2018-05-15] MEDS ORDERED: QUETIAPINE 50 MG TAB.SR.24H PO ONE (10:25)
--- NOTE | 2018-05-15 12:20 | NUR ---
Patient eating a sandwich and walking in front of the nurses station asking when lunch will be here. Patient is calm and in no distress. Continue to monitor.
--- NOTE | 2018-05-15 14:17 | NUR ---
Patient sleeping supine. No distress observed. Continue to monitor.
--- NOTE | 2018-05-15 16:19 | NUR ---
Patient talking but calm. No distress observed. Continue to monitor.
--- NOTE | 2018-05-15 17:33 | NUR ---
Patient sleeping supine. No distress observed. Continue to monitor.
--- NOTE | 2018-05-15 19:51 | NUR ---
The patient has been resting on his bed and then periodically ambulating around the unit. He stated he did not know why he was here "I don't know. They said I got mad at [place]" He stated he was upset with the people in [place] because they were pick pocketing him. He don't do anything unless I say. 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 When asked what kind of place he was at he replied, "[facility] with some little kids running it" He denies being mentally ill but he does ask for medications. He is redirectable but intrussive.
[2018-05-15] MEDS: LORazepam 1 MG tablet PO PRN (20:02)
[2018-05-15] MEDS ORDERED: QUEtiapine 25mg tablet PO PRN (21:20)
[2018-05-15] MEDS ORDERED: quetiapine 100mg tablet PO PRN (21:20)
--- NOTE | 2018-05-15 21:30 | NUR ---
The patient is awake and stating he is unable to sleep. At times he is loud and talking about making [employer] leave the [place] and he and his mother would be moving in. At another point stated he was a rocket ship and his feet had engines that sparkled. He did accept the PRN Seroquel
--- NOTE | 2018-05-15 21:52 | NUR ---
The patient was digging trough the trash and was redirected back to bed
--- NOTE | 2018-05-15 22:09 | NUR ---
The patient is up at the station requesting staff to call [employer] because "I was supposed to be at work 10 minutes ago" "Get my service revolver" Getting more agitated and demanding to call the police.
--- NOTE | 2018-05-15 22:29 | NUR ---
The patient was getting agitated and difficult to redirect or distract. He is insisting that 911 be called. IM ativan given.
--- NOTE | 2018-05-15 22:39 | NUR ---
The patient is up at the station and slowing down some but continuing to be intrussive up at the station demanding to make a 911 call to the police. 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 He is desputing the specifics of his 5150 hold and states that he is not gravely disabled because he has a trillion dollars in his personal belongings.
--- NOTE | 2018-05-15 23:15 | NUR ---
The patient appears to be asleep
--- NOTE | 2018-05-15 23:59 | NUR ---
The patient back up to the nursing station and slurring his words. He was encouraged to go back to bed.
--- NOTE | 2018-05-16 00:44 | NUR ---
The patient was up to use the bathroom but is back in bed at this time.
--- NOTE | 2018-05-16 02:55 | NUR ---
The patient appears to be asleep at time.
--- NOTE | 2018-05-16 04:28 | NUR ---
The patient's sleep has been restless. He is up to use the bathroom periodically
[2018-05-16] MEDS: LORazepam 2 mg/ml vial IM PRN (05:17)
[2018-05-16] MEDS: ziprasidone IM 20mg inj **IM only IM PRN (05:17)
--- NOTE | 2018-05-16 05:18 | NUR ---
The patient became agitated and wanting to call the police. Then stated he was leaving and tried to exit the ER and at the point was escorted back by overflow staff and security staff. He was threatening to "kick your ass" and "get a gun and blow you away" He was given IM medications.
[2018-05-16] MEDS: LORazepam 1 MG tablet PO PRN (07:39)
[2018-05-16] MEDS: ziprasidone 20mg capsule PO SCH (07:40)
[2018-05-16] MEDS: divalproex sodium 250mg tablet PO SCH (07:41)
--- NOTE | 2018-05-16 10:35 | NUR ---
pt is treathening staff and acting in a hostile way. pt took off shirt and asked security if they wanted to "go". pt will is unwilling to return to bed/area
[2018-05-16] MEDS ORDERED: diphenhydrAMINE 50 mg/ml inj IM ONE (10:40)
[2018-05-16] MEDS ORDERED: LORazepam 2 mg/ml vial IM ONE (10:40)
[2018-05-16] MEDS ORDERED: haloperidol lactate 5mg/ml inj IM ONE (10:40)
--- NOTE | 2018-05-16 10:43 | NUR ---
pt is threatening staff, will not listen to staff or respect boundaries.
--- NOTE | 2018-05-16 10:47 | NUR ---
pt placed in 4 point restraints without incidence
--- NOTE | 2018-05-16 17:56 | NUR ---
ANGIE [employer] TEACHER [id number]
[2018-05-16] MEDS ORDERED: LORazepam 2 mg/ml vial IM PRN (18:45)
[2018-05-16] MEDS ORDERED: quetiapine 100mg tablet PO PRN (18:45)
[2018-05-16] MEDS ORDERED: diphenhydrAMINE 50 mg/ml inj IM PRN (18:45)
[2018-05-16] MEDS ORDERED: haloperidol 5mg tablet PO PRN (18:45)
[2018-05-16] MEDS ORDERED: LORazepam 1 MG tablet PO PRN (18:45)
[2018-05-16] MEDS ORDERED: haloperidol lactate 5mg/ml inj IM PRN (18:45)
[2018-05-16] MEDS ORDERED: diphenhydrAMINE 25mg capsule PO PRN (18:45)
--- NOTE | 2018-05-16 19:43 | NUR ---
Discussed medications with Dr. Lizama and patient's behaviors during the night and earlier in the day. Medication changes made as ordered. The patient is currently resting quietly on his bed after eating his dinner. He is considerable calmer tonight after earlier IM medicatons and is accepting redirection.
[2018-05-16] MEDS: diphenhydrAMINE 25mg capsule PO SCH (20:37)
[2018-05-16] MEDS: LORazepam 1 MG tablet PO SCH (20:37)
[2018-05-16] MEDS: haloperidol 5mg tablet PO SCH (20:37)
[2018-05-16] MEDS: divalproex sodium 500mg tablet.DR PO SCH (20:38)
--- NOTE | 2018-05-16 21:18 | NUR ---
The patient was awake and irritable and making rude comments to staff. He did take his HS medications.
--- NOTE | 2018-05-16 22:33 | NUR ---
The patient appears to be asleep at this time.
--- NOTE | 2018-05-17 02:21 | NUR ---
The patient appears to be asleep at this time
--- NOTE | 2018-05-17 04:56 | NUR ---
The patient is awake and mildly intrussive at the station. He is easily angered. He continues to be grandiose and delusional and stating he owns [employer]. He was directed back to bed. He has slept however throughout the night and he is accepted redirection at this time.
[2018-05-17 05:49] VITALS: BP 124/76
--- NOTE | 2018-05-17 06:31 | NUR ---
Patient sleeping supine. No distress observed. Continue to monitor.
--- NOTE | 2018-05-17 07:40 | NUR ---
Patient at nurses station and asked to go back to his bed. Patient starts cussing and posturing. Patient goes back to room but kept on with profanity. Patient yelling back and forth to pt in room 22. Security at nurses station. Continue to monitor.
[2018-05-17] MEDS: divalproex sodium 500mg tablet.DR PO SCH (07:49)
[2018-05-17] MEDS: LORazepam 1 MG tablet PO SCH (07:49)
[2018-05-17] MEDS: haloperidol 5mg tablet PO SCH (07:50)
[2018-05-17] MEDS: diphenhydrAMINE 25mg capsule PO SCH (07:50)
--- NOTE | 2018-05-17 08:01 | NUR ---
Patient is delusional and stating he has to go to work. 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 Patient talking loud and slightly marching in place. Per Emma, [facility], pt admits to taking bath salts. Security standing by at nurses station. Patient took oral meds. Continue to monitor.
--- NOTE | 2018-05-17 08:05 | NUR ---
Patient yelling at vp security Alka. Patient was posturing and Alka went up to patient and said something and patient walked out the door with her toward [employer] and then Alka came back and said patient had walked outside and left.
--- NOTE | 2018-05-17 08:20 | NUR ---
[employer] notified that patient eloped out by [employer].
--- NOTE | 2018-05-17 08:35 | NUR ---
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
== END 2018-05-17 08:05 | disposition left against medical advice (07) ==
LOC: ER 09:52
DX: F29 Unspecified psychosis not due to a substance or known physiological condition (principal); F22 Delusional disorders; F20.9 Schizophrenia, unspecified; Z88.2 Allergy status to sulfonamides; Z88.8 Allergy status to other drugs, medicaments and biological substances; Z79.899 Other long term (current) drug therapy; Z59.0 Homelessness; Z56.0 Unemployment, unspecified
CPT/HCPCS: 36415; 80053; 80305; 80320; 81003; 84443; 85025; 96372; 99285; J1200; J1630; J2060; Q0163; Q0177

== ENCOUNTER 2018-05-20 08:06 | Emergency (ER) | payer OTHER, MEDICAID ==
[~2018-05-20] VITALS: Ht 188 cm; Wt 67.6 kg
[~2018-05-20 08:06] MED LIST changes: -ACET-2119 PO; -ARIP5TAB4 PO; -CYCL-1 PO; +DIVA-76 PO; -DIVA500T4 PO; -HALO5TAB PO; +HYDR-3686 PO; +HYDR-3717 PO; -HYDR25CA PO; -IBUP-1984 PO; -LORA2TAB96 PO; -LORA2VIA30 IM; -MICO45PO TOP
[2018-05-20] MEDS ORDERED: AMOX-100 PO (08:46)
[2018-05-20 09:01] VITALS: BP 139/96
== END 2018-05-20 09:06 | disposition home or self-care (01) ==
LOC: ER 08:06
DX: S01.512A Laceration without foreign body of oral cavity, initial encounter (principal); F28 Other psychotic disorder not due to a substance or known physiological condition; F20.9 Schizophrenia, unspecified; Z59.0 Homelessness; Z56.0 Unemployment, unspecified; Z91.041 Radiographic dye allergy status; Z88.1 Allergy status to other antibiotic agents; Z79.899 Other long term (current) drug therapy; V49.59XA Passenger injured in collision with other motor vehicles in traffic accident, initial encounter; Y93.89 Activity, other specified; Y92.413 State road as the place of occurrence of the external cause; Y99.9 Unspecified external cause status
CPT/HCPCS: 99283; 99284

== ENCOUNTER 2018-05-20 20:09 | Emergency (ER) | payer MEDICAID, OTHER ==
[~2018-05-20] VITALS: Ht 188 cm; Wt 82.3 kg
[~2018-05-20 20:09] MED LIST changes: +AMOX-100 PO
[2018-05-20 20:14] VITALS: BP 149/94
== END 2018-05-20 20:32 | disposition home or self-care (01) ==
LOC: ER 20:11
DX: F29 Unspecified psychosis not due to a substance or known physiological condition (principal); F20.9 Schizophrenia, unspecified; Z88.2 Allergy status to sulfonamides; Z88.8 Allergy status to other drugs, medicaments and biological substances; Z79.899 Other long term (current) drug therapy; Z59.0 Homelessness; Z56.0 Unemployment, unspecified
CPT/HCPCS: 99284

== ENCOUNTER 2018-05-23 15:40 | Emergency (ER) | payer MEDICAID ==
[~2018-05-23] VITALS: Ht 188 cm; Wt 85.9 kg
[2018-05-23 16:16] VITALS: BP 129/81
== END 2018-05-23 16:50 | disposition home or self-care (01) ==
LOC: ER 15:40
DX: F20.9 Schizophrenia, unspecified (principal); F29 Unspecified psychosis not due to a substance or known physiological condition; F22 Delusional disorders; F12.90 Cannabis use, unspecified, uncomplicated; F15.90 Other stimulant use, unspecified, uncomplicated; F11.90 Opioid use, unspecified, uncomplicated; Z60.2 Problems related to living alone; Z59.0 Homelessness; Z56.0 Unemployment, unspecified
CPT/HCPCS: 99281

== ENCOUNTER 2018-05-25 08:52 | Emergency (ER) | payer MEDICAID ==
[~2018-05-25] VITALS: Ht 188 cm; Wt 86.0 kg
[2018-05-25 08:59] VITALS: BP 142/88
--- NOTE | 2018-05-25 09:04 | NUR ---
PT SEEN IN TRIAGE BY PROVIDER
== END 2018-05-25 09:20 | disposition home or self-care (01) ==
LOC: ER 08:53
DX: G89.29 Other chronic pain (principal); M25.562 Pain in left knee; F12.90 Cannabis use, unspecified, uncomplicated; F15.90 Other stimulant use, unspecified, uncomplicated; F11.90 Opioid use, unspecified, uncomplicated; Z60.2 Problems related to living alone; Z56.0 Unemployment, unspecified; Z59.0 Homelessness; Z91.041 Radiographic dye allergy status; Z88.2 Allergy status to sulfonamides; Z88.8 Allergy status to other drugs, medicaments and biological substances; Z79.899 Other long term (current) drug therapy
CPT/HCPCS: 99282

== ENCOUNTER 2018-05-26 09:19 | Emergency (ER) | payer MEDICAID | END 2018-05-26 10:27 | disposition left against medical advice (07) | LOC: ER 09:20 | DX: Z53.21 Procedure and treatment not carried out due to patient leaving prior to being seen by health care provider (principal) ==

== ENCOUNTER 2019-01-19 06:31 | Emergency (ER) | payer MEDICAID ==
[~2019-01-19] VITALS: Ht 188 cm; Wt 109.1 kg
[~2019-01-19 06:31] MED LIST changes: -AMOX-100 PO
[2019-01-19 06:33] VITALS: BP 150/74
--- NOTE | 2019-01-19 06:58 | NUR ---
awaiting to be seen ed provider.
== END 2019-01-19 07:31 | disposition home or self-care (01) ==
LOC: ER 06:32
DX: S63.592A Other specified sprain of left wrist, initial encounter (principal); S63.693A Other sprain of left middle finger, initial encounter; S60.811A Abrasion of right wrist, initial encounter; F20.9 Schizophrenia, unspecified; F17.200 Nicotine dependence, unspecified, uncomplicated; F12.90 Cannabis use, unspecified, uncomplicated; F15.90 Other stimulant use, unspecified, uncomplicated; F10.99 Alcohol use, unspecified with unspecified alcohol-induced disorder; Z59.0 Homelessness; Z56.0 Unemployment, unspecified; Z60.2 Problems related to living alone; Z88.2 Allergy status to sulfonamides; Z88.8 Allergy status to other drugs, medicaments and biological substances; Z91.041 Radiographic dye allergy status; Z79.899 Other long term (current) drug therapy; Y04.8XXA Assault by other bodily force, initial encounter; Y93.89 Activity, other specified; Y92.89 Other specified places as the place of occurrence of the external cause; Y99.8 Other external cause status; Y90.9 Presence of alcohol in blood, level not specified
CPT/HCPCS: 29130; 73130; 99283

== ENCOUNTER 2019-02-06 18:47 | Emergency (ER) | payer MEDICAID, OTHER ==
[~2019-02-06] VITALS: Ht 188 cm; Wt 100.0 kg
== END 2019-02-06 20:12 | disposition home or self-care (01) ==
LOC: ER 18:49
DX: S63.613A Unspecified sprain of left middle finger, initial encounter (principal); F20.9 Schizophrenia, unspecified; F29 Unspecified psychosis not due to a substance or known physiological condition; F12.90 Cannabis use, unspecified, uncomplicated; F15.90 Other stimulant use, unspecified, uncomplicated; F11.90 Opioid use, unspecified, uncomplicated; Z91.041 Radiographic dye allergy status; Z88.2 Allergy status to sulfonamides; Z79.899 Other long term (current) drug therapy; Z60.2 Problems related to living alone; Z59.0 Homelessness; Z56.0 Unemployment, unspecified; X58.XXXA Exposure to other specified factors, initial encounter; Y93.89 Activity, other specified; Y92.89 Other specified places as the place of occurrence of the external cause; Y99.8 Other external cause status
CPT/HCPCS: 73140; 99283

== ENCOUNTER 2019-02-09 21:40 | Emergency (ER) | payer MEDICAID ==
[~2019-02-09] VITALS: Ht 188 cm; Wt 81.0 kg
--- NOTE | 2019-02-09 22:41 | NUR ---
patient reports smoking meth 3 hours ago; patient has a dx of schizophrenia and has been off his risperidal, atarax and depakote for 3 weeks patient reports all over body pain patient refuses to go to the [place] "because it is not a good place for me"
[2019-02-09] MEDS ORDERED: acetaminophen 325mg tablet PO ONE (22:45)
--- NOTE | 2019-02-09 22:51 | NUR ---
patient ate sandwhich and 240 ml apple juice
[2019-02-09 23:18] VITALS: BP 146/78
== END 2019-02-09 23:20 | disposition home or self-care (01) ==
LOC: ER 21:42
DX: F22 Delusional disorders (principal); F15.90 Other stimulant use, unspecified, uncomplicated; F20.9 Schizophrenia, unspecified; F12.90 Cannabis use, unspecified, uncomplicated; F11.90 Opioid use, unspecified, uncomplicated; Z59.0 Homelessness; Z91.14 Patient's other noncompliance with medication regimen; Z56.0 Unemployment, unspecified; Z91.041 Radiographic dye allergy status; Z88.1 Allergy status to other antibiotic agents; Z88.8 Allergy status to other drugs, medicaments and biological substances
CPT/HCPCS: 99283

== ENCOUNTER 2019-02-11 23:11 | Emergency (ER) | payer MEDICAID ==
[~2019-02-11] VITALS: Ht 188 cm; Wt 100.0 kg
[2019-02-11 23:13] VITALS: BP 152/92
== END 2019-02-11 23:32 | disposition home or self-care (01) ==
LOC: ER 23:11
DX: F22 Delusional disorders (principal); F31.9 Bipolar disorder, unspecified; F25.9 Schizoaffective disorder, unspecified; F12.90 Cannabis use, unspecified, uncomplicated; F15.90 Other stimulant use, unspecified, uncomplicated; F11.90 Opioid use, unspecified, uncomplicated; Z60.2 Problems related to living alone; Z59.0 Homelessness; Z56.0 Unemployment, unspecified; Z91.041 Radiographic dye allergy status; Z88.2 Allergy status to sulfonamides; Z88.1 Allergy status to other antibiotic agents; Z79.899 Other long term (current) drug therapy
CPT/HCPCS: 99281

== ENCOUNTER 2019-02-13 13:12 | Emergency (ER) | payer MEDICAID ==
[~2019-02-13] VITALS: Ht 188 cm; Wt 100.0 kg
[2019-02-13 13:16] VITALS: BP 164/101
== END 2019-02-13 14:08 | disposition home or self-care (01) ==
LOC: ER 13:13
DX: F20.9 Schizophrenia, unspecified (principal); F12.90 Cannabis use, unspecified, uncomplicated; F15.90 Other stimulant use, unspecified, uncomplicated; F11.90 Opioid use, unspecified, uncomplicated; Z59.0 Homelessness; Z91.14 Patient's other noncompliance with medication regimen; Z56.0 Unemployment, unspecified; Z91.041 Radiographic dye allergy status; Z88.1 Allergy status to other antibiotic agents
CPT/HCPCS: 99283

== ENCOUNTER 2019-02-13 18:02 | Emergency (ER) | payer MEDICAID ==
[~2019-02-13] VITALS: Ht 188 cm; Wt 100.0 kg
[2019-02-13 18:18] VITALS: BP 160/100
[2019-02-13] MEDS ORDERED: ibuprofen tablet 400 MG TABLET PO ONE (18:20)
--- NOTE | 2019-02-13 18:29 | NUR ---
pt seen and dc'd by provider
== END 2019-02-13 18:29 | disposition home or self-care (01) ==
LOC: ER 18:03
DX: S40.011A Contusion of right shoulder, initial encounter (principal); F12.90 Cannabis use, unspecified, uncomplicated; F15.90 Other stimulant use, unspecified, uncomplicated; F11.90 Opioid use, unspecified, uncomplicated; Z59.0 Homelessness; Z56.0 Unemployment, unspecified; Z91.041 Radiographic dye allergy status; Z88.1 Allergy status to other antibiotic agents; W01.0XXA Fall on same level from slipping, tripping and stumbling without subsequent striking against object, initial encounter; Y93.89 Activity, other specified; Y92.89 Other specified places as the place of occurrence of the external cause; Y99.9 Unspecified external cause status
CPT/HCPCS: 99281

== ENCOUNTER 2019-02-25 20:24 | Emergency (ER) | payer MEDICAID ==
[~2019-02-25] VITALS: Ht 188 cm; Wt 90.9 kg
[2019-02-25 20:39] VITALS: BP 116/74
== END 2019-02-25 22:59 | disposition home or self-care (01) ==
LOC: ER 20:25
DX: M79.671 Pain in right foot (principal); M79.672 Pain in left foot; F12.90 Cannabis use, unspecified, uncomplicated; F15.90 Other stimulant use, unspecified, uncomplicated; F11.90 Opioid use, unspecified, uncomplicated; Z59.0 Homelessness; Z56.0 Unemployment, unspecified; Z91.041 Radiographic dye allergy status; Z88.1 Allergy status to other antibiotic agents
CPT/HCPCS: 99281